=== PATIENT | female | born 1950 | race Caucasian/White ===

== ENCOUNTER → 2023-06-27 09:30 | Outpatient (REF) | payer MEDICARE, SELFPAY ==
[2023-06-27 10:27] LABS: % Basophils 0.6 % (0-2); % Eosinophils 1.6 % (0-6); % Immature Granulocytes 0.2 % (0-0.5); % Lymphocytes 22.4 % (20.5-51.1); % Monocytes 7.8 % (1.7-9.3); % Neutrophils 67.4 % (42.2-75.2); Absolute Eosinophils 0.1 10^3/uL (0-0.7); Absolute Lymphocytes 1.1 10^3/uL (1.2-3.4); Absolute Monocytes 0.4 10^3/uL (0.1-0.6); Absolute Neutrophils 3.3 10^3/uL (1.4-6.5); Hematocrit 40.3 % (37.0-47.0); Hemoglobin 13.3 g/dL (12.0-16.0); Mean Corpuscular Hgb 31.4 pg (27.0-31.0); Nucleated Red Blood Cells % 0 %; Platelet Count 235 10^3/uL (130-400); Red Blood Cell Count 4.24 10^6/uL (4.20-5.40); Red Cell Dist. Width 12.9 % (11.5-14.5); White Blood Cell Count 4.9 10^3/uL (4.8-10.8)
[2023-06-27 10:51] LABS: Glycohemoglobin (HgbA1c) 5.6 % (4.0-5.6)
[2023-06-27 11:34] LABS: TSH 1.17 uIU/ml (0.47-4.68)
[2023-06-27 11:47] LABS: ALT (SGPT) 23 U/L (0-35); AST (SGOT) 28 U/L (14-36); Albumin 4.3 g/dl (3.5-5.0); Alkaline Phosphatase 65 U/L (38-126); Blood Urea Nitrogen 14 mg/dl (7-17); Calcium 9.6 mg/dl (8.4-10.2); Carbon Dioxide 25 mmol/L (22-30); Chloride 108 mmol/L (98-107); Glucose 102 mg/dl (70-99); HDL Cholesterol 57 mg/dl; LDL Cholesterol, Calculated 85 mg/dl; Potassium 4.5 mmol/L (3.5-5.1); Sodium 138 mmol/L (135-145); Total Bilirubin 0.4 mg/dl (0.2-1.3); Total Cholesterol 169 mg/dl (50-199); Total Protein 6.6 g/dl (6.3-8.2); Triglyceride 135 mg/dl (10-149); Very Low Density Lipoprotein 27 mg/dl (0-30); eGFR > 60.00
== END ==
LOC: REG 09:30
PROVIDERS: ATTENDING PHYSICIAN Nurse Practitioner
DX: E78.5 Hyperlipidemia, unspecified (principal); R73.01 Impaired fasting glucose; Z00.00 Encounter for general adult medical examination without abnormal findings; R53.83 Other fatigue
CPT/HCPCS: 36415; 71046; 80053; 80061; 83036; 84443; 85025

== ENCOUNTER 2023-09-20 10:47 | Outpatient (RCR) | payer MEDICARE, SELFPAY | END 2023-09-20 23:59 | disposition home or self-care (01) | LOC: RPT 10:47 | PROVIDERS: ATTENDING PHYSICIAN Obstetrics & Gynecology Gynecology; FAMILY PHYSICIAN Internal Medicine | DX: N81.10 Cystocele, unspecified (principal); N81.6 Rectocele; M62.89 Other specified disorders of muscle; Z73.6 Limitation of activities due to disability; M62.81 Muscle weakness (generalized); R27.8 Other lack of coordination | CPT/HCPCS: 97110; 97140; 97162; 97530 ==

== ENCOUNTER 2023-10-18 10:58 | Outpatient (RCR) | payer MEDICARE, SELFPAY | END 2023-10-18 23:59 | disposition home or self-care (01) | LOC: RPT 10:58 | PROVIDERS: ATTENDING PHYSICIAN Obstetrics & Gynecology Gynecology; FAMILY PHYSICIAN Internal Medicine | DX: N81.10 Cystocele, unspecified (principal); N81.6 Rectocele; M62.89 Other specified disorders of muscle; Z73.6 Limitation of activities due to disability; M62.81 Muscle weakness (generalized); R27.8 Other lack of coordination | CPT/HCPCS: 97014; 97112; 97530 ==

== ENCOUNTER 2023-11-15 11:44 | Outpatient (RCR) | payer MEDICARE, SELFPAY | END 2023-11-15 23:59 | disposition home or self-care (01) | LOC: RPT 11:44 | PROVIDERS: ATTENDING PHYSICIAN Obstetrics & Gynecology Gynecology; FAMILY PHYSICIAN Internal Medicine | DX: N81.10 Cystocele, unspecified (principal); N81.6 Rectocele; M62.89 Other specified disorders of muscle; Z73.6 Limitation of activities due to disability; M62.81 Muscle weakness (generalized); R27.8 Other lack of coordination | CPT/HCPCS: 97014; 97112; 97530 ==

== ENCOUNTER → 2023-12-18 14:29 | Outpatient (REF) | payer MEDICARE, SELFPAY | LOC: WDC 14:29 | PROVIDERS: ATTENDING PHYSICIAN Obstetrics & Gynecology Gynecology; FAMILY PHYSICIAN Internal Medicine | DX: Z12.31 Encounter for screening mammogram for malignant neoplasm of breast (principal) | CPT/HCPCS: 77063; 77067 ==

== ENCOUNTER 2023-12-19 10:48 | Outpatient (RCR) | payer MEDICARE, SELFPAY | END 2023-12-19 23:59 | disposition home or self-care (01) | LOC: RPT 10:48 | PROVIDERS: ATTENDING PHYSICIAN Obstetrics & Gynecology Gynecology; FAMILY PHYSICIAN Internal Medicine | DX: N81.10 Cystocele, unspecified (principal); N81.6 Rectocele; Z73.6 Limitation of activities due to disability; M62.81 Muscle weakness (generalized); M62.89 Other specified disorders of muscle; R27.8 Other lack of coordination | CPT/HCPCS: 97014; 97112; 97530 ==

== ENCOUNTER → 2023-12-20 06:20 | Day surgery (SDC) | payer MEDICARE, SELFPAY | LOC: GI 06:20 | PROVIDERS: ATTENDING PHYSICIAN Specialist | DX: K22.89 Other specified disease of esophagus (principal); K31.7 Polyp of stomach and duodenum; R12 Heartburn; K21.00 Gastro-esophageal reflux disease with esophagitis, without bleeding | CPT/HCPCS: 43239; 88305 ==

== ENCOUNTER 2024-01-10 13:50 | Outpatient (RCR) | payer MEDICARE, SELFPAY | END 2024-01-10 23:59 | disposition home or self-care (01) | LOC: RPT 13:50 | PROVIDERS: ATTENDING PHYSICIAN Obstetrics & Gynecology Gynecology; FAMILY PHYSICIAN Internal Medicine | DX: N81.10 Cystocele, unspecified (principal); N81.6 Rectocele; M62.89 Other specified disorders of muscle; Z73.6 Limitation of activities due to disability; M62.81 Muscle weakness (generalized); R27.8 Other lack of coordination | CPT/HCPCS: 97014; 97530 ==

== ENCOUNTER 2024-02-14 12:48 | Outpatient (RCR) | payer MEDICARE, SELFPAY | END 2024-02-14 23:59 | disposition home or self-care (01) | LOC: RPT 12:48 | PROVIDERS: ATTENDING PHYSICIAN Obstetrics & Gynecology Gynecology; FAMILY PHYSICIAN Internal Medicine | DX: N81.10 Cystocele, unspecified (principal); N81.6 Rectocele; Z73.6 Limitation of activities due to disability; M62.89 Other specified disorders of muscle; M62.81 Muscle weakness (generalized); R27.8 Other lack of coordination | CPT/HCPCS: 97014; 97112; 97530 ==

== ENCOUNTER 2024-03-13 12:52 | Outpatient (RCR) | payer MEDICARE, SELFPAY | END 2024-03-13 14:01 | disposition home or self-care (01) | LOC: RPT 12:52 | PROVIDERS: ATTENDING PHYSICIAN Obstetrics & Gynecology Gynecology; FAMILY PHYSICIAN Internal Medicine | DX: N81.10 Cystocele, unspecified (principal); N81.6 Rectocele; M62.89 Other specified disorders of muscle; Z73.6 Limitation of activities due to disability; R27.8 Other lack of coordination; M62.81 Muscle weakness (generalized) | CPT/HCPCS: 97530 ==

== ENCOUNTER 2024-06-05 06:18 | Day surgery (SDC) | payer MEDICARE, SELFPAY | END 2024-06-05 14:58 | disposition home or self-care (01) | LOC: GI 06:18 | PROVIDERS: ATTENDING PHYSICIAN Specialist; FAMILY PHYSICIAN Internal Medicine | DX: Z12.11 Encounter for screening for malignant neoplasm of colon (principal); D12.3 Benign neoplasm of transverse colon; K63.5 Polyp of colon; K57.30 Diverticulosis of large intestine without perforation or abscess without bleeding; Z86.0101 Personal history of adenomatous and serrated colon polyps; Z80.0 Family history of malignant neoplasm of digestive organs | CPT/HCPCS: 45385; 45380; 88305 ==

== ENCOUNTER → 2024-08-14 09:25 | Outpatient (REF) | payer MEDICARE, SELFPAY ==
[2024-08-14 10:22] LABS: % Basophils 0.7 % (0-2); % Eosinophils 4.2 % (0-6); % Immature Granulocytes 0.2 % (0-0.5); % Lymphocytes 20.2 % (20.5-51.1); % Monocytes 7.7 % (1.7-9.3); Absolute Eosinophils 0.2 10^3/uL (0-0.7); Absolute Lymphocytes 1.2 10^3/uL (1.2-3.4); Absolute Monocytes 0.4 10^3/uL (0.1-0.6); Absolute Neutrophils 3.8 10^3/uL (1.4-6.5); Hematocrit 38.5 % (37.0-47.0); Mean Corp Hgb Conc. 33.8 g/dL (33.0-37.0); Mean Corpuscular Hgb 31.8 pg (27.0-31.0); Mean Corpuscular Volume 94.1 fL (81.0-99.0); Mean Platelet Volume 10.8 fL (7.4-10.4); Nucleated Red Blood Cells % 0 %; Platelet Count 232 10^3/uL (130-400); Red Blood Cell Count 4.09 10^6/uL (4.20-5.40); Red Cell Dist. Width 12.6 % (11.5-14.5); White Blood Cell Count 5.7 10^3/uL (4.8-10.8)
[2024-08-14 11:42] LABS: ALT (SGPT) 20 U/L (0-35); AST (SGOT) 21 U/L (14-36); Alkaline Phosphatase 52 U/L (38-126); Blood Urea Nitrogen 13 mg/dl (7-17); Calcium 9.7 mg/dl (8.4-10.2); Carbon Dioxide 27 mmol/L (22-30); Chloride 108 mmol/L (98-107); Glucose 99 mg/dl (70-99); HDL Cholesterol 55 mg/dl; LDL Cholesterol, Calculated 99 mg/dl; Potassium 4.4 mmol/L (3.5-5.1); Sodium 142 mmol/L (135-145); Total Bilirubin 0.5 mg/dl (0.2-1.3); Total Cholesterol 177 mg/dl (50-199); Total Protein 6.1 g/dl (6.3-8.2); Triglyceride 117 mg/dl (10-149); Very Low Density Lipoprotein 23 mg/dl (0-30); eGFR > 60.00
[2024-08-14 13:48] LABS: Glycohemoglobin (HgbA1c) 5.7 % (4.0-5.6)
== END ==
LOC: REG 09:25
PROVIDERS: ATTENDING PHYSICIAN Internal Medicine
DX: E78.5 Hyperlipidemia, unspecified (principal); R73.02 Impaired glucose tolerance (oral); R53.83 Other fatigue
CPT/HCPCS: 36415; 80053; 80061; 83036; 84443; 85025

== ENCOUNTER 2024-11-11 15:04 | Emergency (ER) | payer MEDICARE, SELFPAY ==
[2024-11-11 15:10] VITALS: BP 124/104
--- NOTE | 2024-11-11 15:45 | ED.SKININJ ---
HPI-Injury
General
Chief Complaint: Bite
Source: patient
Exam Limitations: none
Time Seen by Provider: 11/11/24 15:16
Nursing documentation reviewed up to this point in time: agreed with
History of Present Illness-Injury
Is this injury a work related problem?: No
Is pt an associate of [facility]/[place]?: No
Initial Injury comments:
Patient states she was bit by her cat. Cat is UTD with rabies. Incident occured just [employer]. Multiple superficial scratches to right forearm. Punture x 2 to right hand.
Past History
Past History
ED Past Medical History: None
Review of Systems
Review of Systems
Allergies reviewed?: Yes
All Other Systems: ROS reviewed and negative except as documented in HPI and ROS
Constitutional: Reports no symptoms
EENT: Reports no symptoms
Respiratory: Reports no symptoms
Cardiac: Reports no symptoms
ABD/GI: Reports no symptoms
Musculoskeletal: Reports no symptoms
Skin: Reports other (cat bite right hand, forearm)
Neurological: Reports no symptoms
Psychiatric: Reports no symptoms
Skin Exam
Bite
Right Hand:
Type: animal
Skin has: puncture wounds
Surrounding area around bite has: no evidence of erythema
Distal skin color and temperature: normal-warm & good color
Normal distal neurovascular exam: Yes
Right Forearm:
Type: animal
Skin has: abrasions but intact
Surrounding area around bite has: no evidence of erythema
Distal skin color and temperature: normal-warm & good color
Normal distal neurovascular exam: Yes
Phy Exam
General Physical Exam
General Presentation: well appearing and no apparent distress
General age: appears stated age
General Skin: warm and dry
General Habitus: normal
General Mental: alert
Musculoskeletal Exam
Musculoskeletal Exam: full ROM and neuro vasc intact
Skin Exam
Skin Exam: normal color and warm/dry
Psychiatric Exam
Psychiatric Exam: normal mood/affect
Course
Orders/Labs/Results
Orders:
Orders
11/11/24 15:25
Doxycycline [Vibramycin] 100 mg PO NOW STA
MetroNIDAZOLE [Flagyl] 500 mg PO NOW STA
Tetanus/Diphth/Acelpertussis [Adacel] 0.5 ml IM .ONCE ONE
Vital Signs
Initial and Last Documented VS:
Initial Vital Signs
Temp Pulse Resp BP Pulse Ox
98 F 82 16 124/104 98
11/11/24 15:10 11/11/24 15:10 11/11/24 15:10 11/11/24 15:10 11/11/24 15:10
Last Documented Vital Signs
Temp Pulse Resp BP Pulse Ox
98 F 82 16 124/104 98
11/11/24 15:10 11/11/24 15:10 11/11/24 15:10 11/11/24 15:10 11/11/24 15:10
*Pulse Oximetry
SaO2: 98
Oxygen Mode of Delivery: Room air
Patient hypoxic: no
*Critical Care Note
Total Time (30-74mins, 75-104mins- exclusive of procedures): Not Applicable
Update Note
Update Note:
Patient to ED after bite from her cat. Forearm has multiple superficial scratches. Puncture x 2 to right hand. No erythema or swelling. PCN allergic. Placed on doxy and flagyl. Tdap given in ED. She is discharged home and will follow up with
PCP. Given instructions on s/s to return to ED and she is agreeable to plan.
ED Attending Note
-
Portions of this chart may have been created with voice recognition software.� Occasional wrong word or��sound alike� substitutions may have occurred due to the inherent limitations of voice recognition software.
Discharge Plan
Departure
Patient Disposition: Home (Routine Discharge)
Date of Disposition: 11/11/24
Time of Disposition: 15:26
Patient with high blood pressure during this ER visit?: No
Condition: Good
Covid-19: Not Applicable
Discharge Problem:
Cat bite of forearm
Instructions: Animal Bites (DC), Wound Care (DC)
Prescriptions:
New
doxycycline hyclate 100 mg capsule
100 mg PO BID Qty: 14 0RF
metronidazole 500 mg tablet
500 mg PO TID Qty: 20 0RF
Activity Restrictions/Additional Instructions:
Return to the emergency department immediately for fever/chills, increasing pain/redness/swelling to your arm, or for any further concerns.
Interventions
Interventions:
*Risk Screen - Suicide Last Done: 11/11/24 15:11
*Neglect/Abuse Screening Last Done: 11/11/24 15:11
Discharge Date and Time
Print Language: KOREAN
[2024-11-11] MEDS: FLAGYL 500 MG PO (16:21)
[2024-11-11] MEDS: ADACEL 0.5 ML IM (16:21)
[2024-11-11] MEDS: VIBRAMYCIN 100 MG PO (16:21)
== END 2024-11-11 16:23 | disposition home or self-care (01) ==
LOC: EMR 15:04
PROVIDERS: EMERGENCY PHYSICIAN Emergency Medicine; FAMILY PHYSICIAN Internal Medicine
DX: S61.431A Puncture wound without foreign body of right hand, initial encounter (principal); W55.01XA Bitten by cat, initial encounter; Z23 Encounter for immunization
CPT/HCPCS: 99282; 90471; 90715

== ENCOUNTER 2024-11-12 17:15 | Observation (INO) | payer MEDICARE, SELFPAY ==
[2024-11-12] VITALS (7 sets, daily range): BP systolic 106–144; BP diastolic 62–87; BMI 24.0; BMI 23.4
[2024-11-12 14:45] LABS: Hematocrit 41.4 % (37.0-47.0); Hemoglobin 14.0 g/dL (12.0-16.0); Mean Corp Hgb Conc. 33.8 g/dL (33.0-37.0); Mean Corpuscular Volume 92.8 fL (81.0-99.0); Nucleated Red Blood Cells % 0 %; Platelet Count 227 10^3/uL (130-400); Red Cell Dist. Width 12.5 % (11.5-14.5)
--- NOTE | 2024-11-12 14:46 | ED.SKININJ ---
HPI-Injury
<Jay Velazquez PA-C - Last Filed: 11/12/24 16:22>
General
Chief Complaint: Bite
Source: patient
Exam Limitations: none
Time Seen by Provider: 11/12/24 13:58
History of Present Illness-Injury
Initial Injury comments:
74-year-old female with history of hyperlipidemia and GERD presents with increasing redness and swelling to the right hand. She was here yesterday after a cat bite and scratch to the right hand and forearm. She was placed on doxycycline and
Flagyl. She has had 2 doses of each medication over the course of 24 hours. She notes worsening symptoms. She denies fevers and chills. She notes most of the pain is around the base of the right thumb
Past History
<Jay Velazquez PA-C - Last Filed: 11/12/24 16:22>
Past History
ED Past Medical History: None
Phy Exam
<Jay Velazquez PA-C - Last Filed: 11/12/24 16:22>
Physical Exam
Physical Exam:
General: Well-appearing female no acute respiratory distress
HEENT: Normocephalic atraumatic.
Skin: Multiple puncture wounds and scratches to the right hand and forearm. More concerning areas the base of the thumb and the volar right wrist with swelling and erythema surrounding 2 puncture wounds. She has good range of motion of the wrist
and thumb no lymphangitic streaking
Vascular: Brisk cap refill all fingers right hand
Course
<Jay Velazquez PA-C - Last Filed: 11/12/24 16:22>
Orders/Labs/Results
Orders:
Orders
11/12/24 14:36
Basic Metabolic Panel Urgent
Complete Blood Count/With Diff Urgent
11/12/24 14:57
Ampicillin/Sulbactam 3 G [Unasyn] 3 gm 0.9% Sodium Chloride 100 ml [Nss] 100 ml IV NOW
Abnormal Lab Results
11/12/24
14:36
MCH 31.4 H pg
(27.0-31.0)
Absolute Neuts (auto) 6.7 H 10^3/uL
(1.4-6.5)
Absolute Monos (auto) 0.7 H 10^3/uL
(0.1-0.6)
Neutrophils % 76.7 H %
(42.2-75.2)
Lymphocytes % 13.3 L %
(20.5-51.1)
Glucose 109 H mg/dl
(70-99)
11/12/24 14:36
11/12/24 14:36
Vital Signs
Initial and Last Documented VS:
Initial Vital Signs
Temp Pulse Resp BP Pulse Ox
98.3 F 84 16 124/72 97
11/12/24 12:44 11/12/24 12:44 11/12/24 12:44 11/12/24 12:44 11/12/24 12:44
Last Documented Vital Signs
Temp Pulse Resp BP Pulse Ox
98.3 F 80 16 119/62 95
11/12/24 12:44 11/12/24 14:33 11/12/24 14:33 11/12/24 15:00 11/12/24 15:00
<Wojciech Dunn, DO - Last Filed: 11/12/24 16:21>
Orders/Labs/Results
Orders:
Orders
11/12/24 14:36
Basic Metabolic Panel Urgent
Complete Blood Count/With Diff Urgent
11/12/24 14:57
Ampicillin/Sulbactam 3 G [Unasyn] 3 gm 0.9% Sodium Chloride 100 ml [Nss] 100 ml IV NOW
Abnormal Lab Results
11/12/24
14:36
MCH 31.4 H pg
(27.0-31.0)
Absolute Neuts (auto) 6.7 H 10^3/uL
(1.4-6.5)
Absolute Monos (auto) 0.7 H 10^3/uL
(0.1-0.6)
Neutrophils % 76.7 H %
(42.2-75.2)
Lymphocytes % 13.3 L %
(20.5-51.1)
Glucose 109 H mg/dl
(70-99)
11/12/24 14:36
11/12/24 14:36
Vital Signs
Initial and Last Documented VS:
Initial Vital Signs
Temp Pulse Resp BP Pulse Ox
98.3 F 84 16 124/72 97
11/12/24 12:44 11/12/24 12:44 11/12/24 12:44 11/12/24 12:44 11/12/24 12:44
Last Documented Vital Signs
Temp Pulse Resp BP Pulse Ox
98.3 F 80 16 119/62 95
11/12/24 12:44 11/12/24 14:33 11/12/24 14:33 11/12/24 15:00 11/12/24 15:00
<Jay Velazquez PA-C - Last Filed: 11/12/24 16:22>
MDM/Problems Addressed
Differential Diagnosis Includes:
Cat bite to the right hand with surrounding cellulitis. She has been on 24 hours with Flagyl and doxycycline. Penicillin is listed as an allergy but she never really took penicillin. Her father had a bad reaction so her mother always told her she
was allergic. Will try dose of Unasyn. Social determinants of disposition currently she takes care of her with dementia. He is being discharged from this hospital for the same reason Bite cellulitis.
<Jay Velazquez PA-C - Last Filed: 11/12/24 16:22>
*Pulse Oximetry
SaO2: 97
Oxygen Mode of Delivery: Room air
Patient hypoxic: no
*Critical Care Note
Total Time (30-74mins, 75-104mins- exclusive of procedures): Not Applicable
<Jay Velazquez PA-C - Last Filed: 11/12/24 16:22>
Update Note
Update Note:
Patient reevaluated multiple times. Overall she is feeling outpatient antibiotics with worsening symptoms. Unasyn ordered here will admit to hospital for cat bite cellular
ED Attending Note
<Jay Velazquez PA-C - Last Filed: 11/12/24 16:22>
-
Portions of this chart may have been created with voice recognition software.� Occasional wrong word or��sound alike� substitutions may have occurred due to the inherent limitations of voice recognition software.
<Wojciech Dunn DO - Last Filed: 11/12/24 16:21>
ED Attending Note
Patient seen and examined by attending physician: Yes
I performed the substantive portion of visit, reviewed & personally made and approve the management plan that is documented in note by myself or BRITTNEY.: Yes
ED Attending Note:
74-year-old female with progressive cellulitis from cat bite failed outpatient antibiotics. Admit IV antibiotics
Discharge Plan
Departure
Patient Disposition: Admit
Date of Disposition: 11/12/24
Time of Disposition: 16:22
Presentation/result/management discussed w/ accepting MD/DO: Hospitalist
Discharge Problem:
Cellulitis
Prescriptions:
No Action
doxycycline hyclate 100 mg capsule
100 mg PO BID Qty: 14 0RF
Rx Instructions:
for 7 days starting 11/11/24
metronidazole 500 mg tablet
500 mg PO TID Qty: 20 0RF
Rx Instructions:
for 10 days starting 11/11/24
atorvastatin [Lipitor] 40 mg Tablet
40 mg PO QPM
alprazolam [Xanax] 1 mg Tablet
1 mg PO BID
omeprazole 40 mg Capsule,Delayed Release(Dr/Ec)
40 mg PO BID
escitalopram oxalate [Lexapro] 20 mg Tablet
20 mg PO DAILY
fexofenadine [Beatrice] 180 mg Tablet
180 mg PO DAILY
famotidine [Pepcid] 20 mg Tablet
20 mg PO HS
vitamin B complex [B Complete] Tablet
1 tab PO DAILY
PreserVision AREDS 2,148 mcg-113 mg-45 mg-17.4mg Tablet
1 tab PO DAILY
Referrals:
Amy Warren MD [Family Provider, Internal Medicine]
Interventions
Interventions:
*Risk Screen - Suicide Last Done: 11/12/24 14:30
*General Assessment Last Done: 11/12/24 14:30
*Neglect/Abuse Screening Last Done: 11/12/24 14:30
*ED- Fall Risk Assessment Last Done: 11/12/24 14:30
*ED COVID-19 Vaccine History Last Done: 11/12/24 14:30
ED-Skin Assessment Last Done: 11/12/24 14:31
Discharge Date and Time
Print Language: [place]
[2024-11-12 14:59] LABS: Blood Urea Nitrogen 14 mg/dl (7-17); Calcium 9.7 mg/dl (8.4-10.2); Carbon Dioxide 25 mmol/L (22-30); Chloride 105 mmol/L (98-107); Estimated Creatinine Clearance 69 ml/min; Glucose 109 mg/dl (70-99); Sodium 137 mmol/L (135-145); eGFR > 60.00
[2024-11-12] MEDS: UNASYN IV ×2 (15:12→22:49)
--- NOTE | 2024-11-12 16:24 | HPS.HSE ---
Family Physician
-
Family Physician: Amy Warren
Chief Complaint
-
Cat bite
History of Present Illness
Patient is a 74-year-old female with past medical history significant for hyperlipidemia, anxiety/depression and GERD who presented to [facility] ED for evaluation of cat bite and scratches to right hand and forearm. Patient was seen yesterday in ED for
same and discharged on antiboitics. She reports taking 2 doses as ordered. Despite PO antibotics area has worsened. Denies fever and chills.
Medical History
Past Medical History
Past Medical History: Reports Other
Additional Past Medical History:
Hyperlipidemia
Anxiety/Depression
GERD
migraine
Past Surgical History: Reports Other
Additional Past Surgical History:
D+C x2
Lt arthroscopy left knee
Tonsillectomy
Laproscopic Appendectomy Pre cancerous polyp appendocele 04/12
Social History
Tobacco: Non-smoker
Personal:
Living: With Family
Family History
Family History: Other (Father: esophageal cancer; Mother: Colon cancer, uterine cancer )
Allergies / Home Medications
Allergies reflects when Allergies were last updated in [employer].
Home Medications with original date entered in [employer]
Allergy/Medication List:
Allergies
Allergy/AdvReac Type Severity Reaction Status Date / Time
Penicillins Allergy Unknown Verified 11/12/24 12:47
Home Medications
doxycycline hyclate 100 mg capsule 100 mg PO BID #14 caps 11/11/24
metronidazole 500 mg tablet 500 mg PO TID #20 tabs 11/11/24
alprazolam 1 mg tablet (Xanax) 1 mg PO BID 11/12/24
atorvastatin 40 mg tablet (Lipitor) 40 mg PO QPM 11/12/24
escitalopram oxalate 20 mg tablet (Lexapro) 20 mg PO DAILY 11/12/24
famotidine 20 mg tablet (Pepcid) 20 mg PO HS 11/12/24
fexofenadine 180 mg tablet 180 mg PO DAILY 11/12/24
omeprazole 40 mg capsule,delayed release 40 mg PO BID 11/12/24
vitamin B complex 1 tab PO DAILY 11/12/24
vitamins A,C,K-pazd-fmkbfr 2,148 mcg-113 mg-45 mg-17.4 mg tablet (PreserVision AREDS) 1 tab PO DAILY 11/12/24
Review of Systems
-
History Source: Patient
Constitutional: Reports No Symptoms
EENT: Reports No Symptoms
Respiratory: Reports No Symptoms
Cardiac: Reports No Symptoms
Abdomen/GI: Reports No Symptoms
: Reports No Symptoms
Musculoskeletal: Reports No Symptoms
Skin: Reports Other (bite and scratches to right hand and forearm )
Neurological: Reports No Symptoms
Endocrine: Reports No Symptoms
Hematologic/Lymphatic: Reports No Symptoms
Psych: Reports No Symptoms
Physical Exam
Vital Signs
Vital Signs
Temp Pulse Resp BP Pulse Ox
98.3 F 80 16 119/62 95
11/12/24 12:44 11/12/24 14:33 11/12/24 14:33 11/12/24 15:00 11/12/24 15:00
Physical Exam
General: Well Developed, Well Nourished and No Apparent Distress
HEENT: NormoCephalic, Moist mucous membranes and Atraumatic
Respiratory: Clear and Non Labored Respirations
Cardiac: S1/S2 and Regular Rhythm
Breast: Deferred by me
GI: Soft, Non Tender, Non Distended and Normal Bowel Sounds; No Organomegaly
Rectal: Deferred by Provider
Genito-urinary: Deferred by me
Musculoskeletal: No Clubbing, No Cyanosis and No Edema
Skin: Warm and Other (right forearm and right hand with multiple scratches and puncture site from cat. Erythema and edema present)
Neuro: Awake, AO x 3 and Nonfocal/grossly intact
Psych: Calm and Intact Judgment/Insight
Laboratory Results
-
11/12/24 14:36
11/12/24 14:36
Laboratory Results
Total Bilirubin Cancelled 11/12/24 14:36
AST Cancelled 11/12/24 14:36
ALT Cancelled 11/12/24 14:36
Alkaline Phosphatase Cancelled 11/12/24 14:36
Data Reviewed
-
Lab Data: Labs Reviewed by me
Impression/Plan
-
IMPRESSION/PLAN:
#cat bite and scratches
#cellulitis
worsened with PO antibiotics
- Admit to med/surg
- IV Unasyn, monitor for reaction, patient unsure if true penicillin allergy
- supportive care
#Hyperlipidemia
- continue atorvastatin
#Anxiety/Depression
- continue alprazolam and escitalopram
#GERD
- continue famotidine and omeprazole
Code status: full code
DVT Prophylaxis: lovenox sq
--- NOTE | 2024-11-12 16:28 | W.PN.UPDATE ---
Update Note
Progress Note Update
This is an addendum to H&P written by DAIRY FEED MIXING OPERATOR Becca Lyon
I saw and examined the patient.
The DAIRY FEED MIXING OPERATOR's note was reviewed and I agree with the note.
Comment:
Ms. Adrienne Varma is a 74 yo woman with hx HLD, GERD who presents to the ER with increasing redness and swelling to right hand after a cat bite to right hand and forearm yesterday. Patient was here yesterday and prescribed Doxy/Flagyl with
worsening symptoms prompting her to return today.
Triage VS: T 98.3, P 84, RR 16, BP 124/72, SpO2 97%
On exam patient is awake, alert, in no distress. Right hand with swelling and redness extending from dorsal aspect past wrist. She has no exquisite tenderness at joints and able to flex wrist without significant pain, good medical case manager strength.
LABS: WBC 8.7, Hg 14, PLT 227, Na 137, CO2 25, BUN 14, Cr 0.6, Glucose 109
Cat Bite and resulting Cellulitis
-penicillin was listed as an allergy but per further review, her father had a bad reaction so her mother told her she was allergic
-continue IV Unasyn
-given exam with good ROM, no significant joint tenderness, do not see need for ortho consult now, team to reassess daily
-s/p TDap in ER visit yesterday
HLD - COPYING MACHINE REPAIRER STatin
Anxiety Depression - COPYING MACHINE REPAIRER Xanax/Lexapro
GERD - COPYING MACHINE REPAIRER PPI
Remainder of plan per DAIRY FEED MIXING OPERATOR note
[2024-11-12] MEDS: PROTONIX PO (20:02)
[2024-11-12] MEDS: PEPCID 20 MG PO (22:48)
[2024-11-12] MEDS: XANAX 1 MG PO (22:48)
--- NOTE | 2024-11-13 00:16 | PTCARENOTE ---
Pt arrived to unit via wheelchair. Pt walked from wheelchair to bed. Pt oriented to room. Pt AAOx3, VSS. Pt in room with . Call nash within reach, plan of care ongoing.
[2024-11-13] MEDS: UNASYN IV ×3 (03:56→15:49)
[2024-11-13 07:00] VITALS: BP 116/60
--- NOTE | 2024-11-13 07:38 | W.PN.HOSP.TC ---
Today's Communication/Plan
-
Discharge home today
Assessment / Plan
Assessment / Plan
Impression:
Ms. Adrienne Varma is a 74 yo woman with hx HLD, GERD who presents to the ER with increasing redness and swelling to right hand after a cat bite to right hand and forearm yesterday. Patient was here yesterday and prescribed Doxy/Flagyl with
worsening symptoms prompting her to return to the ER.
Patient admitted to the hospital and started on Unasyn.
Overall redness and swelling improved.
Will be discharged home on Augmentin.
Assessment/plan:
cellulitis 2/2 cat bite and scratches
worsened with PO antibiotics (patient was on Doxy and felt)
- Admited to med/surg
- Started on IV Unasyn, overall symptoms improved
- Will be discharged home today on oral Augmentin.
Hyperlipidemia
- continue atorvastatin
Anxiety/Depression
- continue alprazolam and escitalopram
GERD
- continue famotidine and omeprazole
CODE STATUS: Full code
DVT prophylaxis: Lovenox
Diet: Regular diet
Family communication: Discussed with at bedside.
Disposition: Discharge home today
Total time spent on today's encounter was 65 minutes which included time spent in counseling the patient/family regarding diagnosis and treatment plan as listed above, goals of care, and symptom management. Case was discussed with nursing staff,
specialists, and care coordinators/case management. All labs and imaging personally reviewed by me. Remainder the time spent in detailed review of previous records, lab data, imaging, and other medical provider documentation.
Anticipated Discharge: Today
Subjective/Interval History
-
Date of Service: November 13, 2024
Patient seen and examined at bedside, denies any chest pain or shortness of breath, no abdominal pain, no nausea, no vomiting, no diarrhea or constipation.
Objective Data
-
Labs:
Laboratory Results
11/13/24
07:19
WBC Pending
Hgb Pending
Hct Pending
Plt Count Pending
Vital Signs:
Vital Signs
Temp Pulse Resp BP Pulse Ox
98.2 F 78 16 106/64 97
11/12/24 23:25 11/12/24 23:25 11/12/24 23:25 11/12/24 23:25 11/12/24 23:25
I&O
11/12/24 11/13/24 11/14/24
06:59 06:59 06:59
Intake Total 480 / 480
Balance 480 / 480
Physical Exam
-
General: Well Developed, Well Nourished, No Apparent Distress and Comfortable
HEENT: Normocephalic, Atraumatic, Moist Mucous Membranes, No Ptosis, PERRLA and Nose Appears Normal
Respiratory: Clear to Auscultation and Non Labored Respirations
Cardiac: Regular Rhythm and S1/S2
Breast: Deferred by me
GI: Soft, Nontender, Nondistended and Normal Bowel Sounds
Genito-urinary: No Costovertebral Tender
Musculoskeletal: No Clubbing, No Cyanosis and No Edema
Skin: Warm, Rash, Lesions and Other (Right wrist, forearm with multiple abrasions from cat scratch and cat bite but overall swelling improved.)
Neuro: Awake, Alert, Oriented, AO x 3 and No Motor Deficits
Psych: Calm
Data Reviewed
-
Diagnostic Radiology: Image personally visualized and interpreted and Report Reviewed by me
CT Scan: Image personally visualized and interpreted and Report Reviewed by me
Ultrasound: Image personally visualized and interpreted and Report Reviewed by me
MRI: Image personally visualized and interpreted and Report Reviewed by me
Medical Tests (Nuc Med, Echo etc): Image personally visualized and interpreted and Report Reviewed by me
Labs: Labs Reviewed by me
Old Records: Reviewed
[2024-11-13] MEDS: XANAX 1 MG PO (08:08)
[2024-11-13] MEDS: PROTONIX 40 MG PO (08:08)
[2024-11-13] MEDS: LEXAPRO 20 MG PO (08:09)
[2024-11-13] MEDS: VISBIOME 1 CAP PO (08:09)
[2024-11-13] MEDS: CLARITIN 10 MG PO (08:09)
[2024-11-13 08:18] LABS: Hematocrit 38.5 % (37.0-47.0); Hemoglobin 13.1 g/dL (12.0-16.0); Mean Corp Hgb Conc. 34.0 g/dL (33.0-37.0); Mean Corpuscular Volume 92.1 fL (81.0-99.0); Platelet Count 215 10^3/uL (130-400); Red Cell Dist. Width 12.8 % (11.5-14.5)
--- NOTE | 2024-11-13 10:51 | W.DCSUMMARY ---
Discharge Summary
Discharge Data
Date of Admission: 11/12/24
Date of Discharge: 11/13/24
-
Pending Results: No
Hospital Course
Hospital course
Ms. Adrienne Varma is a 74 yo woman with hx HLD, GERD who presents to the ER with increasing redness and swelling to right hand after a cat bite to right hand and forearm yesterday. Patient was here yesterday and prescribed Doxy/Flagyl with
worsening symptoms prompting her to return to the ER.
Patient admitted to the hospital and started on Unasyn.
Overall redness and swelling improved.
Will be discharged home on Augmentin.
During hospitalization patient was treated from the following
cellulitis 2/2 cat bite and scratches
worsened with PO antibiotics (patient was on Doxy and felt)
- Admited to med/surg
- Started on IV Unasyn, overall symptoms improved
- Will be discharged home today on oral Augmentin.
Hyperlipidemia
- continue atorvastatin
Anxiety/Depression
- continue alprazolam and escitalopram
GERD
- continue famotidine and omeprazole
CODE STATUS: Full code
DVT prophylaxis: Lovenox
Diet: Regular diet
Family communication: Discussed with at bedside.
Disposition: Discharge home today
Total time spent on today's encounter was 40 minutes which included time spent in counseling the patient/family regarding diagnosis and treatment plan as listed above, goals of care, and symptom management. Case was discussed with nursing staff,
specialists, and care coordinators/case management. All labs and imaging personally reviewed by me. Remainder the time spent in detailed review of previous records, lab data, imaging, and other medical provider documentation.
Anticipated Discharge: Today
Discharge Plan
-
Patient Disposition: Home (Routine Discharge)
Discharge Diagnosis/Procedures: Cellulitis secondary cat bite
Diet: As tolerated and Regular
Activity: As tolerated
Referrals:
Amy Warren MD [Family Provider, Internal Medicine]
Prescriptions:
New
amoxicillin-pot clavulanate 875-125 mg tablet
1 tab PO BID Qty: 20 0RF
Rx Instructions:
Patient does not have penicillin allergy
Probiotic 100 billion cell capsule
1 cap PO DAILY Qty: 10 0RF
Continued
atorvastatin [Lipitor] 40 mg Tablet
40 mg PO QPM
alprazolam [Xanax] 1 mg Tablet
1 mg PO BID
omeprazole 40 mg Capsule,Delayed Release(Dr/Ec)
40 mg PO BID
escitalopram oxalate [Lexapro] 20 mg Tablet
20 mg PO DAILY
fexofenadine 180 mg Tablet
180 mg PO DAILY
famotidine [Pepcid] 20 mg Tablet
20 mg PO HS
vitamin B complex Tablet
1 tab PO DAILY
PreserVision AREDS 2,148 mcg-113 mg-45 mg-17.4mg Tablet
1 tab PO DAILY
Discontinued
doxycycline hyclate 100 mg capsule
100 mg PO BID Qty: 14 0RF
Rx Instructions:
for 7 days starting 11/11/24
metronidazole 500 mg tablet
500 mg PO TID Qty: 20 0RF
Rx Instructions:
for 10 days starting 11/11/24
Discharge Orders:
Discharge Patient (As Directed); Ordered 11/13/24
Ordered By: Jose Angel Cardona
Discharge Date and Time
Print Language: ETHIOPIAN
--- NOTE | 2024-11-13 14:06 | CM ---
Alert awake oriented patient who lives with her Christian in a 2 story home with 2 steps to enter and 12 steps to bed/bathroom. She is independent in activates of daily living.She does drive.She uses no adaptive devices.[employer] letter given
explained signed on chart.Offered VN she declined at this time.Pt will drive herself home.
No VN in past . No SNF hx
Pharmacy [facility]
PCP Dr Warren
PLAN Home with no needs
[2024-11-13 15:00] VITALS: BP 116/61
[2024-11-13] MEDS: FLUSH (NSS) 2 FLUSH IV (15:49)
== END 2024-11-13 17:03 | disposition home or self-care (01) ==
LOC: 3 WEST ACU 17:15
PROVIDERS: Nurse Practitioner Family; Physician Assistant; ADMITTING PHYSICIAN Student in an Organized Health Care Education/Training Program; ATTENDING PHYSICIAN General Practice; EMERGENCY PHYSICIAN Emergency Medicine; FAMILY PHYSICIAN Internal Medicine
DX: L03.113 Cellulitis of right upper limb (principal); S61.451A Open bite of right hand, initial encounter; W55.01XA Bitten by cat, initial encounter; E78.5 Hyperlipidemia, unspecified; K21.9 Gastro-esophageal reflux disease without esophagitis; F41.9 Anxiety disorder, unspecified; F32.A Depression, unspecified; Z79.899 Other long term (current) drug therapy
CPT/HCPCS: 80048; 85025; 85027; 96365; 99285; G0378

== ENCOUNTER 2024-11-15 14:04 | Emergency (ER) | payer MEDICARE, SELFPAY ==
[2024-11-15 14:07] VITALS: BP 109/72
--- NOTE | 2024-11-15 15:27 | ED.GENMED ---
History of Present Illness
General
Chief Complaint: Skin Problem
Source: patient
Time Seen by Provider: 11/15/24 15:11
History of Present Illness
History of Present Illness:
This patient is a 74-year-old female who presents emergency department status post cat bite. At that time she was started on Doxy Flagyl but then had worsening symptoms which prompted her return visit to the emergency department. She was admitted
to the hospital and received IV Unasyn, and was discharged 2 days ago on Augmentin. Patient is compliant with the medication and denies any reactions to this. She was noted to be improving upon discharge. Today, she noticed that the area looked
slightly red again which prompted her visit here. She denies drainage, fever, chills, difficulty moving hand wrist or forearm, sweats, or other complaints.
Past History
Past History
ED Past Medical History: GERD and Hypercholesterolemia
Social History
Tobacco: Non-smoker
Drug: None
Personal:
Living: with family
Phy Exam
Physical Exam
Physical Exam:
GENERAL: Alert , in no apparent distress
EYE: pupils equal and reactive
NECK: Supple, no significant adenopathy.
ENT: o/p clr, mmm.
CARDIAC: Regular rate and rhythm .
LUNGS: Clear breath sounds bilaterally, no acute respiratory distress, no wheezes/rales/rhonchi
ABDOMEN: Soft, without focal tenderness, no r/g, no cvat
NEUROLOGICAL: Alert and oriented, no focal neuro deficits
SKIN: Warm and dry, skin intact. There are several scratches with well attached scabs noted at R dorsal forearm and base of R hand. At base R thumb area, mil eythema noted, localized to this area, no streaking, discharge, fluctuance, crepitus.
Full range of motion of wrist hand forearm.
MUSCULOSKELETAL: well perfused.
PSYCH: Normal and appropriate interaction.
Course
Vital Signs
Initial and Last Documented VS:
Initial Vital Signs
Temp Pulse Resp BP Pulse Ox
97.8 F 83 16 109/72 99
11/15/24 14:07 11/15/24 14:07 11/15/24 14:07 11/15/24 14:07 11/15/24 14:07
Last Documented Vital Signs
Temp Pulse Resp BP Pulse Ox
97.8 F 83 16 109/72 99
11/15/24 14:07 11/15/24 14:07 11/15/24 14:07 11/15/24 14:07 11/15/24 15:33
*Pulse Oximetry
SaO2: 99
Oxygen Mode of Delivery: Room air
Patient hypoxic: no
*Critical Care Note
Total Time (30-74mins, 75-104mins- exclusive of procedures): Not Applicable
Update Note
Update Note:
Patient presents to the Emergency Department with ___right hand redness
Number and Complexity of Problems Addressed at the Encounter
� Chronic conditions affecting care:
� Acute Exacerbation and/or Progression of Chronic Illness:
� Differential Diagnosis includes: But not limited to expected healing status post cat bite wounds, worsening infection, abscess, etc. etc.
Amount and/or Complexity of Data to be Reviewed and Analyzed
� I performed an independent evaluation of and my interpretation is:
EKG:
CT:
Xrays:
Laboratory Studies:
Other:
� Review of other/old records reveals:
� Clinical information was obtained by an independent historian:
� Prescriptions/Medications Considered but not given:
� Further testing considered but not performed:
Risk of Complications and/or Morbidity or Mortality of Patient Management
� Social determinants of health affecting care:
� Discussion with other providers (PCP, Hospitalists, Consultants, etc):
� Escalation of care including admission/observation vs risk of discharge considered: Unfortunately there are no comparison photos in the patient chart or that the patient took however in reviewing records from her
hospitalization here, what I visualized today is certainly improved compared to what she had before. Her exam today is not concerning for indication for acute hospitalization and IV antibiotics. However this does need to be closely monitored. I
recommend that she return to the emergency department tomorrow when I am here so that I can inspected again and she is agreeable to this. I did discuss with infectious disease about this plan as well.
ED Attending Note
-
Portions of this chart may have been created with voice recognition software.� Occasional wrong word or��sound alike� substitutions may have occurred due to the inherent limitations of voice recognition software.
Discharge Plan
Departure
Patient Disposition: Home (Routine Discharge)
Date of Disposition: 11/15/24
Time of Disposition: 15:41
Patient with high blood pressure during this ER visit?: No
Condition: Good
Discharge Problem:
Cellulitis
Instructions: Cellulitis (Skin Infection), Adult (DC)
Prescriptions:
No Action
atorvastatin [Lipitor] 40 mg Tablet
40 mg PO QPM
alprazolam [Xanax] 1 mg Tablet
1 mg PO BID
omeprazole 40 mg Capsule,Delayed Release(Dr/Ec)
40 mg PO BID
escitalopram oxalate [Lexapro] 20 mg Tablet
20 mg PO DAILY
fexofenadine 180 mg Tablet
180 mg PO DAILY
famotidine [Pepcid] 20 mg Tablet
20 mg PO HS
vitamin B complex Tablet
1 tab PO DAILY
PreserVision AREDS 2,148 mcg-113 mg-45 mg-17.4mg Tablet
1 tab PO DAILY
amoxicillin-pot clavulanate 875-125 mg tablet
1 tab PO BID Qty: 20 0RF
Rx Instructions:
Patient does not have penicillin allergy
Probiotic 100 billion cell capsule
1 cap PO DAILY Qty: 10 0RF
Activity Restrictions/Additional Instructions:
PLEASE CONTINUE YOUR ANTIBIOTICS DIRECTED. PLEASE RETURN TO THE EMERGENCY DEPARTMENT FOR REPEAT INSPECTION OF YOUR HAND TOMORROW AFTER 5 PM. IF YOU DEVELOP INCREASING REDNESS, PAIN, ANY DRAINAGE, FEVER, SWELLING, OR OTHER WORRISOME SIGNS,
PLEASE RETURN TO THE ER IMMEDIATELY!
Interventions
Interventions:
*Risk Screen - Suicide Last Done: 11/15/24 14:09
*Neglect/Abuse Screening Last Done: 11/15/24 14:09
Discharge Date and Time
Print Language: [id number]
== END 2024-11-15 15:45 | disposition home or self-care (01) ==
LOC: EMR 14:04
PROVIDERS: EMERGENCY PHYSICIAN Emergency Medicine; FAMILY PHYSICIAN Internal Medicine
DX: L03.113 Cellulitis of right upper limb (principal); E78.00 Pure hypercholesterolemia, unspecified
CPT/HCPCS: 99282

== ENCOUNTER → 2024-12-18 13:39 | Outpatient (REF) | payer MEDICARE, SELFPAY | LOC: WDC 13:39 | PROVIDERS: ATTENDING PHYSICIAN Obstetrics & Gynecology Gynecology; FAMILY PHYSICIAN Internal Medicine | DX: Z12.31 Encounter for screening mammogram for malignant neoplasm of breast (principal) | CPT/HCPCS: 77063; 77067 ==

== ENCOUNTER → 2024-12-24 09:06 | Outpatient (REF) | payer MEDICARE, SELFPAY | LOC: WDC 09:06 | PROVIDERS: ATTENDING PHYSICIAN Obstetrics & Gynecology Gynecology; FAMILY PHYSICIAN Internal Medicine | DX: R92.8 Other abnormal and inconclusive findings on diagnostic imaging of breast (principal) | CPT/HCPCS: 76642 ==

== ENCOUNTER → 2025-01-21 12:46 | Outpatient (REF) | payer MEDICARE, SELFPAY | LOC: RAD 12:46 | PROVIDERS: ATTENDING PHYSICIAN Obstetrics & Gynecology Gynecology; FAMILY PHYSICIAN Internal Medicine | DX: Z12.31 Encounter for screening mammogram for malignant neoplasm of breast (principal); Z78.0 Asymptomatic menopausal state | CPT/HCPCS: 77080 ==